=== PATIENT | male | born 1970 | race Caucasian/White ===

== ENCOUNTER 2023-01-04 08:11 | Outpatient (CLI) | payer BC, SELFPAY | END 2023-01-04 08:12 | disposition home or self-care (01) | LOC: NFLDREF 01-10 12:10 | PROVIDERS: Visit Provider Family Medicine | DX: Z12.5 Encounter for screening for malignant neoplasm of prostate (principal); Z13.1 Encounter for screening for diabetes mellitus; Z13.6 Encounter for screening for cardiovascular disorders | CPT/HCPCS: 80061; 82947; 84153 ==

== ENCOUNTER 2023-01-22 12:07 | Outpatient (CLI) | payer BC, SELFPAY ==
--- NOTE | 2023-01-22 13:44 | W.ANESCHARGE ---
Anesthesia Charges Start Date/Time Anesthesia Start Date: 01/22/23 Anesthesia Start Time: 13:13 Stop Date/Time Anesthesia Stop Date: 01/22/23 Anesthesia Stop Time: 13:41
--- NOTE | 2023-01-22 13:45 | W.ANESCHARGE ---
Anesthesia Charges Start Date/Time Anesthesia Start Date: 01/22/23 Anesthesia Start Time: 13:13 Stop Date/Time Anesthesia Stop Date: 01/22/23 Anesthesia Stop Time: 13:41
== END 2023-01-22 12:08 | disposition home or self-care (01) ==
LOC: OP CLINIC 12:07
PROVIDERS: PCP Family Medicine; Visit Provider Surgery
DX: Z12.11 Encounter for screening for malignant neoplasm of colon (principal)
CPT/HCPCS: 00812; 45385; 88305; J2704

== ENCOUNTER 2024-11-05 07:45 | Outpatient (CLI) | payer BC, SELFPAY | END 2024-11-05 07:46 | disposition home or self-care (01) | LOC: NFLDREF 11-10 18:11 | PROVIDERS: PCP Family Medicine; Referring Provider Family Medicine; Visit Provider Family Medicine | DX: E78.5 Hyperlipidemia, unspecified (principal); Z13.9 Encounter for screening, unspecified | CPT/HCPCS: 80053; 80061; G0103 ==

== ENCOUNTER 2024-11-18 14:38 | Outpatient (CLI) | payer BC, SELFPAY ==
[2024-11-18] MEDS: PERFLUTREN LIPID MICROSPHERES 2 ML VIAL IVP (15:29)
[2024-11-18 16:00] VITALS: BP 138/72; PULSE 72; RESP 20; O2SAT 98
--- NOTE | 2024-11-18 16:34 | W.PM.STED ---
Stress Test Note Date Date Seen: 11/18/24 Date of test: 11/18/24 Providers Primary care provider: Mikey Barros Stress test physician: Leanne Boyd Stress Test Note Stress test ordered: Stress Echo Indication for test: Chest pain Stress test medicine: Definity Results discussion: Resting EKG: Sinus rhythm, 67 beats per minute. Resting blood pressure: 136/92 Stress test:. Patient is consented on ordered stress test of exercise treadmill stress echo and agrees to proceed. Standard Steven protocol was followed. Patient was able to exercise to 10 minutes, stopping due to meeting heart rate goal and exercise capacity. This is equivalent to 11.7 Mets. He had a maximum heart rate of 154 beats per minute which was 110% of a calculated target heart rate of 140. Had a maximal blood pressure of 164/92, rate pressure product of 25,256. In recovery he did have some sinus arrhythmia but otherwise no arrhythmias, no diagnostic criteria for any ischemia. Patient had no symptoms. Await echo images to couple this for a full formal diagnostic. Impression: Subjectively negative, objectively negative EKG portion of this stress test. Follow up suggested: Patient discharged in stable condition. He will await formal report from the food service tray attendant to couple this for a full formal diagnostic.
== END 2024-11-18 16:01 ==
PROVIDERS: PCP Family Medicine; Visit Provider Family Medicine
DX: R07.9 Chest pain, unspecified (principal)
CPT/HCPCS: 93016; 93325; 93351; Q9957